=== PATIENT | male | born 1955 | race Caucasian/White ===

== ENCOUNTER 2018-10-26 16:41 | Outpatient (CLI) | payer OTHER ==
--- NOTE | 2018-10-27 10:51 | Ultrasound Report ---
Reason: TESTICULAR MASS, LEFT Procedure Date: 10/26/2018 Accession Number: [id number] / [id number] Procedure: US - Testicle CPT Code: FULL RESULT: EXAM: SCROTAL ULTRASOUND EXAM DATE: 10/26/2018 05:38 PM. CLINICAL HISTORY: Testicular mass, left. COMPARISON: None. TECHNIQUE: Real-time scanning was performed with static images obtained. Color-flow images were utilized. FINDINGS: Right: Testis: 4.5 x 2.2 x 3.2 cm. Normal size and echotexture. No mass, calcification, or abnormal blood flow. Epididymis: 2.2 x 0.6 x 1.0 cm. Normal size and echotexture. No mass or abnormal blood flow. Hydrocele: Small to moderate. Varicocele: None. Left: Testis: 4.2 x 2.0 x 2.9 cm. Normal size and echotexture. No mass, calcification, or abnormal blood flow. Epididymis: 3.2 x 1.7 x 2.5 cm. Mildly increased size due to a 2.2 x 1.5 x 1.8 cm cyst and echotexture. No abnormal blood flow. Hydrocele: Small to moderate. Varicocele: None. IMPRESSION: Bilateral [id number] hydroceles. The left testicular mass is identified as an epididymal head cyst. [facility]
== END 2018-10-26 16:42 | disposition home or self-care (01) ==
LOC: DI 16:41
PROVIDERS: ATTEND Internal Medicine
DX: N43.3 Hydrocele, unspecified (principal)
CPT/HCPCS: 76870